=== PATIENT | female | born 1990 | race Caucasian/White ===

== ENCOUNTER 2018-05-13 08:52 | Emergency (ER) | payer SELFPAY ==
[~2018-05-13] VITALS: Ht 167.6 cm; Wt 92.4 kg
[2018-05-13 08:57] VITALS: BP 134/78; PULSE 74; RESP 18; Ht 167.6 cm; Wt 92.4 kg
[2018-05-13] MEDS ORDERED: ACETAMINOPHEN 500 MG TAB PO STA (09:19)
[2018-05-13] MEDS ORDERED: ONDANSETRON (ODT) 4 MG TAB ODT STA (09:19)
[2018-05-13] MEDS ORDERED: ACET500C5 PO (09:41)
[2018-05-13] MEDS ORDERED: ONDA4TAB14 PO (09:42)
--- NOTE | 2018-05-13 11:37 | ERD ---
ER Documentation Chief Complaint Chief Complaint ap w/vomitting LMP 04/01/18 x8 days HPI 4-year-old female presenting with abdominal pain and vomiting. Patient states that she has had the symptoms for the last 8 days is unsure if she is . She had generalized abdominal pain. Denies dysuria. No fevers. Denies medical problems. NKDA. Surgical history denies. Social history denies ROS All systems reviewed and are negative except as per history of present illness. Medications Home Meds Active Scripts Ondansetron (Ondansetron Odt) 4 Mg Tab.rapdis, 4 MG PO Q6H PRN for NAUSEA AND/OR VOMITING, #10 TAB Prov:SRAVANI AGUILAR PA-C 05/13/18 Acetaminophen* (Tylophen*) 500 Mg Capsule, 2 CAP PO Q8H PRN for PAIN AND OR ELEVATED TEMP, #20 CAP Prov:SRAVANI AGUILAR PA-C 05/13/18 Allergies Allergies: Coded Allergies: No Known Allergy (Unverified , 05/13/18) PMhx/Soc Medical and Surgical Hx: pt denies Medical Hx, pt denies Surgical Hx Hx Alcohol Use: No Hx Substance Use: No Hx Tobacco Use: No Smoking Status: Never smoker FmHx ER course: Urine positive. Family History: No diabetes, No coronary disease, No other Physical Exam Vitals Vital Signs Date Temp Pulse Resp B/P (MAP) Pulse Ox O2 O2 Flow FiO2 Time Delivery Rate 05/13/18 98.7 74 18 134/78 98 08:57 (96) Physical Exam GENERAL: The patient is well-appearing, well-nourished, in no acute distress HEENT: Atraumatic. Conjunctivae are pink. Pupils equal, round, and reactive to light. There is no scleral icterus. Tympanic membranes clear bilaterally. Oropharynx clear. No nystagmus or photophobia. CHEST: Clear to auscultation bilaterally. There are no rales, wheezes or rhonchi. HEART: Regular rate and rhythm. No murmurs, clicks, rubs or gallops. ABDOMEN:Soft, nontender and nondistended. Good bowel sounds. No rebound or guarding. No gross peritonitis. No gross organomegaly or masses. Results 24 hrs Laboratory Tests Test 05/13/18 09:32 05/13/18 09:34 Bedside Urine pH (LAB) 8.5 Bedside Urine Protein (LAB) 1+ Bedside Urine Glucose (UA) Negative Bedside Urine Ketones (LAB) Trace Bedside Urine Blood Negative Bedside Urine Nitrite (LAB) Negative Bedside Urine Leukocyte Esterase (L Negative POC Beta HCG, Qualitative POSITIVE Current Medications Medications Dose Sig/Philip Start Time Status Last (Trade) Ordered Route PRN Stop Time Admin Dose Reason Admin Ondansetron 4 mg ONCE STAT 05/13/18 DC 05/13/18 HCl (Zofran ODT 09:19 05/13/18 09:27 Odt) 09:20 1,000 mg ONCE STAT 05/13/18 DC 05/13/18 Acetaminophen PO :05/13/18 09:27 (Tylenol 09:20 Tab) Procedures/MDM ER course: Urine positive. Zofran and Tylenol given ED. Urinalysis negative. MDM: 28-year-old female presenting with positive finding. Patient unlikely has abdominal emergency as she has no pain on palpation and patient no pain with jumping. I believe patient's vomiting is due to her early . 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 Patient is told if symptoms change or worsen to return the ER. Patient has no lower pelvic pain on palpation so I do not feel ultrasound was indicated. All questions answered at discharge Departure Diagnosis: Primary Impression: Condition: Stable Patient Instructions: , New Dx Referrals: COMPUTER TE[place] [id number] [facility] [address] [place] [address] [phone] OFFICE FAX LANDRY [address] [place], [place] [phone] [address] [place] [address] [place], [place] [phone] JOHN AMES [address] [facility], [address] [address] [address] [address] [place], [place] [phone] [facility] [address] [place] [address] [facility], [facility] [id number] [address] [facility] [address] [address], [place] [address] [facility]. [address], [facility] [address] [address], [facility] [address] [place], [place] [phone] Additional Instructions: FOLLOW UP WITH YOUR PRIMARY CARE PHYSICIAN TOMORROW.Return to this facility if you are not improving as expected. SRAVANI AGUILAR PA-C May 13, 2018 11:37
== END 2018-05-13 09:50 | disposition home or self-care (01) ==
LOC: FTE 08:52
DX: O21.9 Vomiting of pregnancy, unspecified (principal); Z3A.00 Weeks of gestation of pregnancy not specified
CPT/HCPCS: 81003; 81025; 99283